=== PATIENT | female | born 1945 | race Caucasian/White ===

== ENCOUNTER 2025-02-09 16:06 | Inpatient (IN) | payer MEDICARE, BC ==
[~2025-02-09] VITALS: Ht 144.8 cm; Wt 62.7 kg
[2025-02-09 17:07] LABS: PLATELET COUNT (AUTO) 291 K/uL (150-450); RED BLOOD CELL COUNT(AUTO) 3.69 MIL/uL (4.0-5.2); RED CELL DISTRIBUTION WIDTH 13.3 % (11.5-15.0); WHITE BLOOD COUNT (AUTO) 12.1 K/uL (4.3-11.0)
[2025-02-09 17:15] LABS: CALCIUM, SERUM 9.1 mg/dL (8.5-10.1); CREATININE 1.3 mg/dL (0.6-1.3); SODIUM SERUM 137 mmol/L (136-145); UREA NITROGEN, BLOOD 25 mg/dL (7-18)
[2025-02-09 17:18] LABS: SERUM AMMONIA 5 umol/L (11-32)
[2025-02-09] MEDS ORDERED: MAG HYDROX/AL HYDROX/SIMETH 30 ML UDC PO PRN (18:30)
[2025-02-09] MEDS ORDERED: ONDANSETRON HCL/PF 4 MG/2 ML VIAL IVP PRN (18:30)
[2025-02-09] MEDS ORDERED: MAGNESIUM HYDROXIDE 30 ML UDC PO PRN (18:30)
[2025-02-09] MEDS ORDERED: IV NS 0.9% 250 ML IV ONE (18:47)
[2025-02-09] MEDS ORDERED: IOHEXOL-350 100 ML VIAL IV ONE (18:47)
[2025-02-09 19:15] LABS: CALCIUM, SERUM 9.0 mg/dL (8.5-10.1); CREATININE 1.3 mg/dL (0.6-1.3); SODIUM SERUM 138.0 mmol/L (136-145); UREA NITROGEN, BLOOD 24.0 mg/dL (7-18)
[2025-02-09 19:21] LABS: ASPARTATE AMINOTRANSFERASE 16.0 U/L (15-37); TOTAL PROTEIN, SERUM 7.3 g/dL (6.4-8.2)
[2025-02-09] MEDS: ASPIRIN 81 MG TAB.CHEW PO SCH (19:27)
[2025-02-09 20:00] VITALS: BP 130/62; TEMP 98.1; O2SAT 95
[2025-02-09] MEDS: ENOXAPARIN SODIUM 30 MG/0.3 ML DISP.SYRIN SQ SCH (20:27)
[2025-02-09 20:31] LABS: APPEARANCE,URINE CLEAR (CLEAR); BLOOD, URINE NEGATIVE Ery/uL (NEGATIVE); LEUKOCYTE ESTERASE ,URINE NEGATIVE (NEGATIVE); NITRITE, URINE NEGATIVE (NEGATIVE); UGLUCOSE NEGATIVE (NEGATIVE)
[2025-02-09] MEDS: ACETAMINOPHEN 325 MG TABLET PO PRN (20:37)
[2025-02-09] MEDS: BLOOD SUGAR DIAGNOSTIC 1 EACH STRIP IN SCH (21:10)
[2025-02-09] MEDS: ATORVASTATIN 40 MG TABLET PO SCH (21:10)
[2025-02-10] VITALS (7 sets, daily range): BP systolic 110–140; BP diastolic 50–80; TEMP 97.5–98.1; O2SAT 95–97
[2025-02-10] MEDS ORDERED: DEXTROSE 50%-WATER 50 ML DISP.SYRIN IV PRN (04:30)
[2025-02-10] MEDS: BLOOD SUGAR DIAGNOSTIC 1 EACH STRIP IN SCH (06:33)
[2025-02-10] MEDS: INSULIN REGULAR, HUMAN 100 UNIT/ML 3 ML VIAL SQ PRN (06:34)
[2025-02-10 06:40] LABS: PLATELET COUNT (AUTO) 249 K/uL (150-450); RED BLOOD CELL COUNT(AUTO) 3.61 MIL/uL (4.0-5.2); RED CELL DISTRIBUTION WIDTH 13.3 % (11.5-15.0); WHITE BLOOD COUNT (AUTO) 9.5 K/uL (4.3-11.0)
[2025-02-10 06:52] LABS: CALCIUM, SERUM 9.2 mg/dL (8.5-10.1); CREATININE 1.4 mg/dL (0.6-1.3); PHOSPHORUS 4.5 mg/dL (2.5-4.9); SODIUM SERUM 140.0 mmol/L (136-145); UREA NITROGEN, BLOOD 25.0 mg/dL (7-18)
[2025-02-10 06:53] LABS: LDL 55.0 mg/dL (0-99)
[2025-02-10] MEDS: CLOPIDOGREL BISULFATE 75 MG TABLET PO SCH (09:56)
[2025-02-10] MEDS: IBUPROFEN 600 MG TABLET PO PRN (12:33)
[2025-02-10] MEDS ORDERED: ICOS1CAP PO (13:08)
[2025-02-10] MEDS ORDERED: GINK120T4 PO (13:08)
[2025-02-10] MEDS ORDERED: FISH12002 PO (13:08)
[2025-02-10] MEDS ORDERED: ASPI-1420 PO (13:08)
[2025-02-10] MEDS ORDERED: PROP20TA19 PO (13:08)
[2025-02-10] MEDS ORDERED: OLME40TA18 PO (13:08)
[2025-02-10] MEDS ORDERED: REPA1TAB7 PO (13:08)
[2025-02-10] MEDS ORDERED: ALLO100T PO (13:08)
[2025-02-10] MEDS ORDERED: UBID1CAP47 PO (13:08)
[2025-02-10] MEDS ORDERED: ROPI1TAB6 PO (13:08)
[2025-02-10] MEDS ORDERED: VIT1CAPS44 PO (13:08)
[2025-02-10] MEDS ORDERED: ROSU20TA2 PO (13:08)
[2025-02-10] MEDS ORDERED: KERENDIA PO (13:08)
[2025-02-10] MEDS ORDERED: ATEN25TA PO (13:08)
[2025-02-10] MEDS ORDERED: ZOLP10TA2 PO (13:08)
[2025-02-10] MEDS ORDERED: EZET10TA32 PO (13:08)
[2025-02-11] VITALS: BP 110/62; TEMP 97.8; O2SAT 95
[2025-02-11 04:51] VITALS: BP 130/80; TEMP 98.6; O2SAT 96
[2025-02-11 07:30] VITALS: BP 103/54; TEMP 97.6; O2SAT 99
[2025-02-11] MEDS ORDERED: ASPI-1169 PO ×2 (10:34→15:11)
[2025-02-11] MEDS ORDERED: CLOP75TA15 PO ×2 (10:34→15:11)
[2025-02-11 15:01] VITALS: TEMP 97.6
== END 2025-02-11 15:26 | disposition home health service (06) | DRG 65 ==
LOC: ER 16:06 → TELE 18:18 → MED 02-11 08:16
PROVIDERS: ADMIT Nurse Practitioner Acute Care
DX: I63.532 Cerebral infarction due to unspecified occlusion or stenosis of left posterior cerebral artery (principal); D68.59 Other primary thrombophilia; N17.9 Acute kidney failure, unspecified; E66.01 Morbid (severe) obesity due to excess calories; E11.22 Type 2 diabetes mellitus with diabetic chronic kidney disease; E78.00 Pure hypercholesterolemia, unspecified; I25.2 Old myocardial infarction; D72.829 Elevated white blood cell count, unspecified; G43.909 Migraine, unspecified, not intractable, without status migrainosus; D64.9 Anemia, unspecified; N18.9 Chronic kidney disease, unspecified; I12.9 Hypertensive chronic kidney disease with stage 1 through stage 4 chronic kidney disease, or unspecified chronic kidney disease; I65.23 Occlusion and stenosis of bilateral carotid arteries; Z79.02 Long term (current) use of antithrombotics/antiplatelets; Z79.82 Long term (current) use of aspirin; Z91.148 Patient's other noncompliance with medication regimen for other reason; R29.700 NIHSS score 0
CPT/HCPCS: 36415; 70450-TC; 70496-TC; 70498-TC; 70551-TC; 72052-TC; 80048-TC; 80053-TC; 80061-TC; 82140-TC; 82962-TC; 83735-TC; 84100-TC; 84439-TC; 84443-TC; 84484-TC; 85025-TC; 85652-TC; 92526; 92611; 93307-TC; 97110-TC; 97116-TC; 97530-TC; 97535-TC; G0378; J1650; J1815; J7050; Q9967